=== PATIENT | male | born 1980 | race Two or more races ===

== ENCOUNTER 2025-01-20 23:11 | Emergency (ER) | payer MEDICAID, OTHER ==
[~2025-01-20] VITALS: Ht 182.9 cm; Wt 75.0 kg
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
--- NOTE | 2025-01-21 02:58 | DVH ---
EXAM: XY R FOOT 3 VIEW XRAY CLINICAL INDICATION: right ankle pain/swelling r/o fracture TECHNIQUE: XY R FOOT 3 VIEW XRAY Comparison: None FINDINGS/IMPRESSION: Cortical irregularity involving the calcaneus m consider CT exam
--- NOTE | 2025-01-21 02:58 | DVH ---
EXAM: XY R ANKLE 3 VIEW, XY R FOOT 3 VIEW XRAY CLINICAL INDICATION: right ankle pain/swelling r/o fracture TECHNIQUE: XY R ANKLE 3 VIEW, XY R FOOT 3 VIEW XRAY Comparison: None FINDINGS/IMPRESSION: Cortical irregularity involving the calcaneus m consider CT exam
[2025-01-21] MEDS ORDERED: IBUP-1456 PO (03:05)
[2025-01-21 03:27] VITALS: BP 122/84; TEMP 98.2
[2025-01-21 03:34] VITALS: PULSE 76; RESP 14; O2SAT 99
== END 2025-01-21 03:37 | disposition home or self-care (01) ==
LOC: ER 23:11
DX: S92.001A Unspecified fracture of right calcaneus, initial encounter for closed fracture (principal); S93.401A Sprain of unspecified ligament of right ankle, initial encounter; Z98.890 Other specified postprocedural states; Z79.899 Other long term (current) drug therapy; Z20.822 Contact with and (suspected) exposure to COVID-19; W19.XXXA Unspecified fall, initial encounter; Y93.89 Activity, other specified; Y92.410 Unspecified street and highway as the place of occurrence of the external cause; Y99.8 Other external cause status
CPT/HCPCS: 29515; 73610; 73630